=== PATIENT | female | born 1990 | race Caucasian/White ===

== ENCOUNTER → 2018-07-08 | Outpatient (CLI) | payer OTHER ==
[~2018-07-08] MED LIST: GADOBUTROL 7.5 MMOL/7.5 ML (GADAVIST) VIAL IV ONE
--- NOTE | 2018-07-15 14:49 | Diagnostic Imaging Report ---
CLINICAL INDICATION: Patient had brain tumor removed in 2006. Patient is a postop 10-year check-up, but skipped a year making this an 11-year check-up. EXAM: MRI of the brain performed without and with 6 cc of Gadavist IV contrast. Sequences include axial DWI, ADC map, axial gradient echo, axial T2, axial FLAIR, axial T1, axial FSPGR, axial T1 post IV contrast, coronal T1 fat-sat post IV contrast, and sagittal T1 post IV contrast. COMPARISON: None. FINDINGS: There are postop changes with craniotomy involving the right occipital bone region. There is parenchymal surgical defect involving the posterior right cerebellum with small amount of adjacent gliosis and encephalomalacia. There is no mass-like IV contrast enhancement seen in the region. The remainder of the brain parenchyma is unremarkable. The brain parenchymal volume appears appropriate for patient's age. There is no evidence of acute cerebral infarct, intracranial hemorrhage, brain herniation, or midline shift. There is no hydrocephalus. Basal cisterns are unremarkable. Besides postop changes, the extracranial soft tissue, skull, and orbits are unremarkable. Paranasal sinuses and temporal bone structures show no significant abnormality. IMPRESSION: 1: There are postop changes to the right posterior fossa region with right cerebellar parenchymal defect with gliosis, and right occipital craniotomy. There is no masslike or abnormal IV contrast enhancement seen in the region. 2: The remainder of this MRI of the brain is unremarkable. Dictated by: Dictated on workstation # [id number]
== END ==
LOC: RAD 10:08
PROVIDERS: ATTEND Nurse Practitioner Family
DX: D49.6 Neoplasm of unspecified behavior of brain (principal); G93.89 Other specified disorders of brain; Z98.890 Other specified postprocedural states
CPT/HCPCS: 70553